=== PATIENT | female | born 1960 | race African-American/Black ===

== ENCOUNTER 2018-02-15 00:07 | Inpatient (IN) | payer SELFPAY ==
[2018-02-15] MEDS ORDERED: INSULIN REGULAR, HUMAN 100 UNIT/ML 3ML VIAL IV ONE ×3 (00:44→20:19)
--- NOTE | 2018-02-15 00:49 | ED Physician Documentation ---
Dyspnea - HPI Stated Complaint: dyspnea Chief Complaint: Dyspnea Additional Information: Patient, with past medical history of DM2, CHF, COPD, HTN, presented to ED on day of admission with a 2 day history of increasing shortness of breath and dry cough. She states her symptoms began yesterday evening and progressed bringing her in tonight. She also complains of lower extremity edema. While in the ED blood sugar is 369, she has been unable to afford her insulin. Onset: days ago (2) Duration: continues in ED Severity: moderate Exacerbated By: laying flat, coughing Associated Symptoms: other (lower extremity edema) - ROS CONST: no problems EYES/ENT: denies: problems with vision GI/: denies: abdominal pain NEURO/PSYCH: denies: headache MS/SKIN/LYMPH: denies: neck pain, swollen glands - PAST HX Lung Disease: COPD Cardiac Disease: CHF PE Risk Factors: leg swelling Other History: diabetes Type 2 Allergies/Adverse Reactions: Allergies Allergy/AdvReac Type Severity Reaction Status Date / Time captopril [From Capoten] Allergy Intermediate Rash Verified 02/15/18 01:55 egg Allergy Mild Verified 02/15/18 01:55 acetaminophen AdvReac Mild Itching Verified 02/15/18 01:55 [From Tylenol-Codeine #3] codeine phosphate AdvReac Mild Itching Verified 02/15/18 01:55 [From Tylenol-Codeine #3] hydrocodone AdvReac Mild Itch Verified 02/15/18 01:55 tramadol AdvReac Mild GI Upset Verified 02/15/18 01:55 Home Medications: Ambulatory Orders Medication Instructions Recorded Insulin Aspart [Novolog] 5 unit SQ BID 06/25/13 Insulin Detemir [Levemir] 30 unit SQ HS #1 vi 06/25/13 Aspirin 81 mg PO DAILY 02/15/18 Atorvastatin Calcium [Lipitor] 80 mg PO DAILY 02/15/18 Carvedilol [Coreg] 25 mg PO DAILY 02/15/18 Furosemide [Lasix] 20 mg PO DAILY 02/15/18 Lisinopril [Prinivil] 10 mg PO DAILY 02/15/18 amLODIPine BESYLATE [Norvasc] 5 mg PO 0900 02/15/18 - SOCIAL HX Smoking History: cigarettes, greater than 1 pack/day Alcohol Use: none Drug Use: none - FAMILY HX Family History: none - REVIEWED ASSESSMENTS Nursing Assessment Reviewed: Yes Vitals Reviewed: Yes Progress - Results/Orders Results/Orders: Portable chest Clinical history: Shortness of breath. Cough. Findings: Examination of the chest single portable AP view demonstrates a somewhat globular cardiomegaly possibly related to cardiomyopathy or pericardial effusion. Lungs are free of coalescent infiltrate. Bony thorax is intact. Impression: 1. Cardiomegaly and aortic atherosclerosis. 2. No active pulmonary disease. Electronically signed on Feb 15, 2018 1:57:05 AM CDT by: Abdirashid Ribera - Progress Progress: 0302 Patient feeling better after two breathing treatments. Patient's Sa02 drops into mid 80s off oxygen. Will admit. Patient is agreeable to 1 day admission. - EKG/XRAY/CT EKG: NSR ED Results Lab/Radiology - Orders Orders: ED Orders Category Date Time Status CHEST 1VIEW [RAD] Stat Exams 02/15/18 Ordered CBC REF Stat Lab 02/15/18 Ordered CMP Routine Lab 02/15/18 Ordered NT-proBNP Stat Lab 02/15/18 Ordered TROPONIN I (cTnI) Stat Lab 02/15/18 Ordered Insulin Regular, Human [Humulin R] Med 02/15/18 00:44 Once 15 unit IV NOW ONE Dyspnea Physical Exam - EXAM General Appearance: mild distress EENT: DONOVAN Neck: nml inspection Respiratory: wheezes (scattered wheezing bilaterally) CVS: reg. rate & rhythm Abdomen: non-tender Extremities: edema (+2 lower extremity edema bilaterally to knee) Neuro/Psych: oriented x3 Discharge Clincal Impression: Acute respiratory failure with hypoxia, COPD with acute exacerbation DM2 (diabetes mellitus, type 2) Qualifiers: Diabetes mellitus manager intermediate insulin use: with custodial use Diabetes mellitus complication status: with hyperglycemia Qualified Code(s): E11.65 - Type 2 diabetes mellitus with hyperglycemia; Z79.4 - terminal operations manager (current) use of insulin Referrals: Caryn Romero MD [Primary Care Provider] - 2 Days Disposition: ADMITTED INPATIENT Decision to Admit: [id number] Date of Decison to Admit: 02/15/18 Decision Time: 03:05
[2018-02-15] MEDS ORDERED: IPRATROPIUM/ALBUTEROL SULFATE 3 ML AMPUL.NEB NEB ONE ×2 (00:58→02:20)
[2018-02-15] MEDS ORDERED: INSULIN REGULAR, HUMAN 100 UNIT/ML 3ML VIAL SQ ONE ×2 (01:38→12:26)
[2018-02-15] MEDS ORDERED: METOLAZONE 2.5 MG TABLET PO ONE (01:58)
[2018-02-15 02:31] LABS: BASO % 0.5 % (0.0-1.5); EOS % 3.8 % (0.0-6.8); LYMPH ABS # 1.13 thou/uL (0.60-4.00); MCH. 25.6 pg (28.0-34.0); MCV 79.4 fL (80.0-100.0); MONOCYTE % 6.4 % (0.0-11.0); PLATELET COUNT 208 thou/uL (130-400)
[2018-02-15] MEDS ORDERED: methylPREDNISolone SOD SUCC 125 MG/2 ML VIAL IVP ONE (03:49)
[2018-02-15] MEDS ORDERED: INSULIN DETEMIR 100 UNIT/ML 3ML PEN.INJCTR SQ SCH (04:00)
[2018-02-15] MEDS ORDERED: INSULIN REGULAR, HUMAN 100 UNIT/ML 3ML VIAL SQ SCH ×2 (04:00→15:25)
[2018-02-15] MEDS ORDERED: INSULIN GLARGINE,HUM.REC.ANLOG 100 UNIT/ML PEN.INJCTR SQ ONE (04:40)
[2018-02-15] MEDS ORDERED: ASPIRIN EC 81 MG TABLET.DR ONE (05:01)
[2018-02-15] MEDS ORDERED: CARVEDILOL 12.5 MG TABLET PO ONE (05:04)
[2018-02-15] MEDS: HEPARIN SODIUM 5000 UNIT/1 ML SQ SCH ×3 (05:18→20:30)
[2018-02-15] MEDS: IPRATROPIUM/ALBUTEROL SULFATE 3 ML AMPUL.NEB NEB SCH ×3 (05:52→18:57)
--- NOTE | 2018-02-15 06:03 | Diagnostic Imaging Report ---
TOM MCCAULEY [facility] [id number] [facility] [address] [place] [address]. [id number] Report Submission Date: Feb 15, 2018 1:57:05 AM CDT Patient Study Name: AMANDA MONTIEL Date: Feb 15, 2018 1:40:16 AM CDT Modality Type: DX Gender: F Description: CHEST : 64 Institution: [facility] Physician: TOM MCCAULEY Portable chest Clinical history: Shortness of breath. Cough. Findings: Examination of the chest single portable AP view demonstrates a somewhat globular cardiomegaly possibly related to cardiomyopathy or pericardial effusion. Lungs are free of coalescent infiltrate. Bony thorax is intact. Impression: 1. Cardiomegaly and aortic atherosclerosis. 2. No active pulmonary disease. Electronically signed on Feb 15, 2018 1:57:05 AM CDT by: Abdirashid FISHER
[2018-02-15 07:47] VITALS: BMI 40.8
[2018-02-15] MEDS: ASPIRIN 81 MG CHEW TAB PO SCH (08:21)
[2018-02-15] MEDS: ATORVASTATIN CALCIUM 80 MG TABLET PO SCH (08:21)
[2018-02-15] MEDS: amLODIPine BESYLATE 5 MG TABLET PO SCH (08:21)
[2018-02-15] MEDS ORDERED: CARVEDILOL 25 MG TABLET PO SCH (09:00)
[2018-02-15] MEDS: CARVEDILOL 12.5 MG TABLET PO SCH (09:36)
[2018-02-15] MEDS: FUROSEMIDE 40 MG/4 ML VIAL IVP SCH (11:49)
[2018-02-15] MEDS ORDERED: 0.9 % SODIUM CHLORIDE 500 ML IV ONE (14:44)
--- NOTE | 2018-02-15 16:02 | Inpatient Progress Note ---
Subjective - Required Recertification Statement I anticipate X number of days because-include discharge plan: Patient admitted in observation status - mild CHF, hypoxia requiring oxygen - Review of Systems General: Denies: Chills, Night Sweats, Fatigue, Malaise, Appetite, Other HEENT: Denies: Head Aches, Visual Changes, Eye Pain, Ear Pain, Dysphasia, Sinus Congestion, Post Nasal Drip, Sore Throat, Other Pulmonary: Denies: Dyspnea, Cough, Pleuritic Chest Pain, Other Cardiovascular: Edema (ankles) Gastrointestinal: Denies: Nausea, Vomiting, Abdominal Pain Genitourinary: Denies: Dysuria, Frequency, Incontinence, Hematuria, Retention, Deferred, Other Musculoskeletal: Denies: Neck Pain, Shoulder Pain, Arm Pain, Back Pain, Hand Pain, Leg Pain, Foot Pain, Deferred, Other Neurological: Denies: Weakness, Numbness, Incoordination, Change in Speech, Confusion, Seizures, Deferred, Other Objective - Exam Vitals and I&O: Vital Signs Temp 98.1 F 02/15/18 14:00 Pulse 78 02/15/18 14:00 Resp 20 02/15/18 15:00 BP 122/56 02/15/18 14:00 Pulse Ox 93 02/15/18 09:24 Intake & Output 02/14/18 02/15/18 02/15/18 23:59 11:59 23:59 Intake Total 480 640 Balance 480 640 Weight 97.976 kg Intake: Oral 480 640 Other: Voiding Method Toilet Toilet # Voids 2 General: Alert, Oriented to Person, Oriented to Place, Oriented to Time, Cooperative HEENT: Atraumatic, PERRLA, EOMI, Mouth Mucous membr. moist/[place], Nose Mucous membr. moist/[place] Lungs: Clear to auscultation, Normal air movement, Speaks full Sentences Cardiovascular: Regular rate, Normal S1, Normal S2, No murmurs Abdomen: Normal bowel sounds, Soft, No tenderness, No hepatospenomegaly, No masses Extremities: No clubbing, No cyanosis, No edema, Normal pulses, No tenderness/swelling Skin: Normal, [place], Warm, Dry Neurological: Normal gait, Normal speech, Strength Equal Bilat, Normal tone, Sensation intact, Cranial nerves 3-12 NL, Reflexes 2+ Psych/Mental Status: Mental status NL, Mood NL, Appropriate Affect, Intact Judgment - Results Results: Laboratory Results WBC Comment 9.30 thou/uL (4.00-12.00) 02/15/18 01:19 RBC 4.29 mil/uL (3.90-5.20) 02/15/18 01:19 Hemoglobin (Send Out) 11.0 g/dL (11.5-16.0) L 02/15/18 01:19 Hct (Send Out) 34.1 % (34.5-46.5) L 02/15/18 01:19 MCV (Send Out) 79.4 fL (80.0-100.0) L 02/15/18 01:19 MCH 25.6 pg (28.0-34.0) L 02/15/18 01:19 MCHC (Send Out) 32.3 g/dL (30.0-36.0) 02/15/18 01:19 RDW Coeff of Yuan 14.6 % (11.3-14.7) 02/15/18 01:19 Plt Count 208 thou/uL (130-400) 02/15/18 01:19 Absolute Lymphs (auto) 1.13 thou/uL (0.60-4.00) 02/15/18 01:19 Absolute Monos (auto) 0.60 thou/uL (0.00-0.90) 02/15/18 01:19 Absolute Basos (auto) 0.05 thou/uL (0.00-0.50) 02/15/18 01:19 Neutrophils % 77.2 % (39.0-79.0) 02/15/18 01:19 Absolute Neutrophils 7.18 thou/uL (1.50-7.70) 02/15/18 01:19 Lymphocytes 12.1 % (16.0-50.0) L 02/15/18 01:19 Monocytes 6.4 % (0.0-11.0) 02/15/18 01:19 Absolute Eosinophils 0.35 thou/uL (0.00-0.60) 02/15/18 01:19 Basophilia % 0.5 % (0.0-1.5) 02/15/18 01:19 Eosinophil Count 3.8 % (0.0-6.8) 02/15/18 01:19 Sodium 128 mmol/L (136-145) L 02/15/18 13:00 Potassium 5.2 mmol/L (3.5-5.1) H 02/15/18 13:00 Chloride 105 mmol/L (98-107) 02/15/18 13:00 Carbon Dioxide 24 mmol/L (22-30) 02/15/18 13:00 BUN 43 mg/dL (7-17) H 02/15/18 13:00 Creatinine 2.00 mg/dL (0.52-1.04) H 02/15/18 13:00 Estimated Creat Clear 57 02/15/18 13:00 Est GFR ( Amer) 33 (60-) L 02/15/18 13:00 Est GFR (Non-Af Amer) 27 (60-) L 02/15/18 13:00 Glucose 419 mg/dL (74-106) H 02/15/18 13:00 Calcium 8.0 mg/dL (8.4-10.2) L 02/15/18 13:00 Total Bilirubin 0.2 mg/dL (0.2-1.3) 02/15/18 00:53 AST 14 U/L (15-46) L 02/15/18 00:53 ALT 20 U/L (13-69) 02/15/18 00:53 Alkaline Phosphatase 132 U/L (38-126) H 02/15/18 00:53 Troponin I < 0.03 ng/mL (0.03-0.06) L 02/15/18 00:54 NT-Pro-B Natriuret Pep 759.0 pg/mL (15.0-125.0) H 02/15/18 00:54 Total Protein 7.4 g/dL (6.3-8.2) 02/15/18 00:53 Albumin 3.9 g/dL (3.5-5.0) 02/15/18 00:53 Assessment/Plan - Assessment/Plan (1) CHF (congestive heart failure) Status: Acute Current Visit: Yes Qualifiers: Heart failure type: combined systolic and diastolic Heart failure chronicity: acute Qualified Code(s): I50.41 - Acute combined systolic (congestive) and diastolic (congestive) heart failure Narrative Support Text: BNP 759 - patient given zaroxlyn in ER, 1100 - lasix 40mg IV, cardiomegaly on chest xray, no pulmonary congestion noted on chest xray. Patient cannot recall ECHO and does not know her CHF. Plan: BMP - scheduled at 1300; will re-evaluate after results completed. Will likely need cardiology referral. (2) Hypoxemia requiring supplemental oxygen Status: Acute Current Visit: Yes Narrative Support Text: 1000 - O2 at 2L NC; BBS clear; orders to nursing to wean oxygen as tolerated for RA Sat > duonebs QID patient received 125mg IV solumedrol in ER> Plan: Wean supplemental oxygen as tolerated for RA Sat >90% (3) Hyperglycemia Status: Acute Current Visit: Yes Narrative Support Text: 1345 BMP with Glucose 419; K 5.2, Na 128 Close review of chart and orders. Patient was placed on Regular diet At home novolog is 18u before meals; lantus 40u qhs Solumedrol 125mg IV in ER Plan: 1. Regular diet discontinued - no concentrated sweet diet ordered. 2. At home novolog is 18u before meals; lantus 40u qhs - 1 time order of 10U Hum R IV given; NS fluid bolus 500cc given 3. Solumedrol 125mg IV in ER - BBS clear, O2 off with RA Sat >90%, will not give any additional IV steroids. 4. R/O DKA - arterial blood gas and UA ordered; must r/o DKA with elevated glucose and K. No acidosis on blood gas; 1600 Blood sugar 469 Patient shared that she has been out of Lantus for 1 week, status she does not have insurance for prescriptions. financial services consultant consult for discharge planning and medication coverage. Case reviewed with Dr Wells. Dr Wells to admit patient acute status (4) Renal insufficiency Status: Acute Current Visit: Yes Narrative Support Text: Cr 1.8 in ER; after diuresing CR up to 2.0 - NS given for hyperglycemia and renal insufficiency.
[2018-02-15 16:05] LABS: APPEARANCE,URINE CLEAR (CLEAR); COLOR,URINE YELLOW (YELLOW)
[2018-02-15 16:06] LABS: OCCULT BLOOD,URINE TRACE-LYSED (NEGATIVE); PH URINE 5.5 (5.0 - 8.0); UROBILINOGEN URINE 0.2 Eu (0.2-1.0)
--- NOTE | 2018-02-15 16:13 | History and Physical Report ---
History of Present Illnes - History of Present Illness Reason for Visit: dyspnea History of Present Illness: 57yo female with 2 day history of SOB. Has been coughing, nonproductive in nature. Has some mild wheezing. No history of asthma noted. Patient subsequently came to the emergency room for evaluation. Patient was felt to have some mild congestive heart failure and possible early COPD exacerbation. Patient was subsequently admitted to observation care for further treatment. However patient blood sugars became uncontrolled with increasing BUN and creatinine. Patient was subsequently admitted to acute care for further evaluation and treatment. - Past Medical History Cardiac: CAD, HTN Pulmonary: denies: Asthma, COPD Renal/: Chronic renal insuff Endocrine: Diabetes - Past Surgical History Past Surgical History: , Other (ORIF left ankle fracure., umbilical hernia surgery. ) - Past Family History Mother Family History: Cancer (? breast), (52) Father Family History: (72yo, unknown) Brother Family History: DM, Other (patient has 6 brothers) Sister Family History: Cancer (breast), DM, Hypertension, Other (3 sisters) - Past Social History Smoke: # pack years (20), <1 pack per day (10 cirgarettes a day) Occupation: Work at [employer] Alcohol: None Drugs: None Lives: Alone Domestic Violence: Negative - Health Maintenance Health Maintenance: Pneumococcal Vaccine (prevnar 13), Mammogram (>5yrs). denies: Influenza Vaccine, Colonoscopy Influenza Vaccine: No Pneumonia Vaccine: Yes Resuscitation Status: Resusciation Status Resuscitation Status Full Code Review of Systems - Review of Systems Constitutional: negative: Fever, Chills, Weakness Eyes: negative: pain, vision change ENT: negative: Ear Pain, Ear Discharge, Nose Pain, Nose Discharge, Nose Congestion, Mouth Pain, Mouth Swelling, Throat Pain, Throat Swelling Respiratory: Cough, Shortness of Breath, SOB with Excertion. negative: Pleuritic Pain Cardiovascular: negative: Chest Pain, Palpitations, Orthopnea, Paroxysmal Noc. Dyspnea, Edema, Light Headedness Gastrointestinal: negative: Nausea, Vomiting, Abdominal Pain, Diarrhea, Constipation, Melena, Hematochezia Genitourinary: negative: Dysuria, Frequency, Incontinence, Hematuria Musculoskeletal: Back Pain (mild) Skin: negative: Rash Neurological: Weakness. negative: Numbness, Incoordination, Change in Speech - Medications/Allergies Allergies/Adverse Reactions: Allergies Allergy/AdvReac Type Severity Reaction Status Date / Time captopril [From Capoten] Allergy Intermediate Rash Verified 02/15/18 01:55 egg Allergy Mild Verified 02/15/18 01:55 acetaminophen AdvReac Mild Itching Verified 02/15/18 01:55 [From Tylenol-Codeine #3] codeine phosphate AdvReac Mild Itching Verified 02/15/18 01:55 [From Tylenol-Codeine #3] hydrocodone AdvReac Mild Itch Verified 02/15/18 01:55 tramadol AdvReac Mild GI Upset Verified 02/15/18 01:55 Home Medications: Home Medications Aspirin 81 mg PO DAILY 02/15/18 Atorvastatin Calcium [Lipitor] 80 mg PO DAILY 02/15/18 Carvedilol [Coreg] 25 mg PO DAILY 02/15/18 Furosemide [Lasix] 20 mg PO DAILY 02/15/18 Lisinopril [Prinivil] 10 mg PO DAILY 02/15/18 amLODIPine BESYLATE [Norvasc] 5 mg PO 0900 02/15/18 Insulin Glargine,Hum.rec.anlog [Lantus] 40 unit SQ BID 02/17/18 Current Inpatient Medications: Current Inpatient Medications Albuterol/Ipratropium (Duoneb) 3 ml NEB Q6 [facility] Last Admin: 02/15/18 12:00 Dose: 3 ml Amlodipine Besylate (Norvasc) 5 mg PO 0900 [facility] Last Admin: 02/15/18 08:21 Dose: 5 mg Aspirin (Aspirin) 81 mg PO DAILY [facility] Last Admin: 02/15/18 08:21 Dose: 81 mg Atorvastatin Calcium (Lipitor) 80 mg PO DAILY [facility] Last Admin: 02/15/18 08:21 Dose: 80 mg Carvedilol (Coreg) 25 mg PO DAILY [facility] Last Admin: 02/15/18 09:36 Dose: Not Given Furosemide (Lasix) 40 mg IVP QD [facility] Last Admin: 02/15/18 11:49 Dose: 40 mg Heparin Sodium (Porcine) (Heparin) 5,000 unit SQ Q8 [facility] Last Admin: 02/15/18 12:41 Dose: 5,000 unit Insulin Detemir (Levemir Flex-Pen) 30 unit SQ HS [facility] Last Admin: 02/15/18 05:18 Dose: 30 units Insulin Human Regular (Humulin R) 0 unit SQ NOW ZEESHAN; Protocol Miscellaneous (Chem Sticks) 1 each CHEMQID [facility] Last Admin: 02/15/18 11:22 Dose: 1 each Exam - Exam Vital Signs: Vital Signs (72 hours) 02/15/18 02/15/18 02/15/18 00:10 03:41 06:00 Temperature 97.7 F 98.4 F 97.6 F Pulse Rate [ 92 H 79 85 Pulse ox] Respiratory 20 24 20 Rate Blood Pressure 167/73 140/68 126/49 [Left Arm] O2 Sat by Pulse 91 L 98 98 Oximetry 02/15/18 02/15/18 02/15/18 09:24 14:00 15:00 Temperature 98.4 F 98.1 F Pulse Rate [ 80 78 Pulse ox] Respiratory 22 20 20 Rate Blood Pressure 119/44 122/56 [Left Arm] O2 Sat by Pulse 93 Oximetry General: Alert, Oriented to Person, Oriented to Place, Oriented to Time, Cooperative, Mild distress HEENT: Atraumatic, PERRLA, EOMI, Mouth Mucous membr. moist/[place], Nose Mucous membr. moist/[place], Hearing Grossly Normal Neck: Normal Range of Motion Carotids: WNL Thyroid: WNL Lungs: Normal air movement, Speaks full Sentences, Wheezes (mild expiratory). No: Rales, Rhonchi Cardiovascular: Regular rate, Normal S1, Normal S2, No murmurs Abdomen: Normal bowel sounds, Soft, No tenderness, No hepatospenomegaly, No masses Integumentary: Normal, [place], Warm, Dry Extremities: No clubbing, No cyanosis, Normal pulses, No tenderness/swelling, Other (2 plus edema) Neurological: Normal gait, Normal speech, Strength Equal Bilat, Normal tone, Sensation intact, Cranial nerves 3-12 NL, Reflexes 2+ Psych/Mental Status: Mental status NL, Mood NL, Appropriate Affect, Intact Judgment - Laboratory Results Laboratory Results: Laboratory Results 02/15/18 02/15/18 02/15/18 00:53 00:54 01:19 WBC Comment 9.30 RBC 4.29 Hemoglobin (Send Out) 11.0 L Hct (Send Out) 34.1 L MCV (Send Out) 79.4 L MCH 25.6 L MCHC (Send Out) 32.3 RDW Coeff of Yuan 14.6 Plt Count 208 Absolute Lymphs (auto) 1.13 Absolute Monos (auto) 0.60 Absolute Basos (auto) 0.05 Neutrophils % 77.2 Absolute Neutrophils 7.18 Lymphocytes 12.1 L Monocytes 6.4 Absolute Eosinophils 0.35 Basophilia % 0.5 Eosinophil Count 3.8 Sodium 130 L Potassium 4.8 Chloride 106 Carbon Dioxide 24 BUN 40 H Creatinine 1.80 H Estimated Creat Clear 65 Est GFR ( Amer) 38 L Est GFR (Non-Af Amer) 31 L Glucose 307 H Calcium 8.3 L Total Bilirubin 0.2 AST 14 L ALT 20 Alkaline Phosphatase 132 H Troponin I < 0.03 L NT-Pro-B Natriuret Pep 759.0 H Total Protein 7.4 Albumin 3.9 Urine Color Urine Appearance Urine pH Ur Specific [place] Urine Protein Urine Ketones Urine Occult Blood Urine Nitrite Urine Bilirubin Urine Urobilinogen Ur Leukocyte Esterase Urine Glucose 02/15/18 02/15/18 13:00 14:44 WBC Comment RBC Hemoglobin (Send Out) Hct (Send Out) MCV (Send Out) MCH MCHC (Send Out) RDW Coeff of Yuan Plt Count Absolute Lymphs (auto) Absolute Monos (auto) Absolute Basos (auto) Neutrophils % Absolute Neutrophils Lymphocytes Monocytes Absolute Eosinophils Basophilia % Eosinophil Count Sodium 128 L Potassium 5.2 H Chloride 105 Carbon Dioxide 24 BUN 43 H Creatinine 2.00 H Estimated Creat Clear 57 Est GFR ( Amer) 33 L Est GFR (Non-Af Amer) 27 L Glucose 419 H Calcium 8.0 L Total Bilirubin AST ALT Alkaline Phosphatase Troponin I NT-Pro-B Natriuret Pep Total Protein Albumin Urine Color Yellow Urine Appearance Clear Urine pH 5.5 Ur Specific [place] 1.015 Urine Protein 2+ H Urine Ketones Negative Urine Occult Blood Trace-lysed H Urine Nitrite Negative Urine Bilirubin Negative Urine Urobilinogen 0.2 Ur Leukocyte Esterase Negative Urine Glucose 1+ H Assessment/Plan - Assessment/Plan (1) CHF (congestive heart failure) Status: Acute Qualifiers: Heart failure type: combined systolic and diastolic Heart failure chronicity: acute Qualified Code(s): I50.41 - Acute combined systolic (congestive) and diastolic (congestive) heart failure (2) COPD with acute exacerbation Status: Chronic (3) DM2 (diabetes mellitus, type 2) Status: Chronic Qualifiers: Diabetes mellitus terminal carman insulin use: with terminal carman use Diabetes mellitus complication status: with hyperglycemia Qualified Code(s): E11.65 - Type 2 diabetes mellitus with hyperglycemia; Z79.4 - MCFP (current) use of insulin (4) Renal insufficiency Status: Chronic Assessment: Patient is not sure what her baseline BUN and creatinine are. Will monitor. VTE Assessment - RISK FACTOR SCORE VTE RISK FACTOR SCORES: AGE 40-60 YEARS, ANTICIPATED BED CONFINEMENT OR IMMOBILIZATION > 24 HOURS - RISK VTE MODERATE RISK: SCORE OF 2 (RISK PROXIMAL DVT 2-4%) PROPHYAXIS NEEDED
[2018-02-15] MEDS: INSULIN REGULAR, HUMAN 100 UNIT/ML 3ML VIAL SQ SCH ×2 (18:24→20:36)
[2018-02-15] MEDS ORDERED: PATIENT OWN MED 1 EACH EACH SQ SCH (21:00)
[2018-02-15] MEDS ORDERED: INSULIN GLARGINE,HUM.REC.ANLOG 100 UNIT/ML PEN.INJCTR SQ SCH (21:00)
[2018-02-16] MEDS: IPRATROPIUM/ALBUTEROL SULFATE 3 ML AMPUL.NEB NEB SCH ×4 (00:05→17:46)
[2018-02-16] MEDS: INSULIN REGULAR, HUMAN 100 UNIT/ML 3ML VIAL SQ SCH ×5 (01:16→20:52)
[2018-02-16 07:25] LABS: eGFR (Non-African) 27
[2018-02-16 08:20] LABS: BASO % 0.2 % (0.0-1.5); EOS % 0.1 % (0.0-6.8); LYMPH ABS # 1.13 thou/uL (0.60-4.00); MCH. 26.4 pg (28.0-34.0); MCV 81.2 fL (80.0-100.0); MONOCYTE % 9.3 % (0.0-11.0); MONOCYTE ABS # 0.68 thou/uL (0.00-0.90); PLATELET COUNT 201 thou/uL (130-400)
[2018-02-16] MEDS: amLODIPine BESYLATE 5 MG TABLET PO SCH (09:02)
[2018-02-16] MEDS: CARVEDILOL 12.5 MG TABLET PO SCH (09:02)
[2018-02-16] MEDS: ATORVASTATIN CALCIUM 80 MG TABLET PO SCH (09:02)
[2018-02-16] MEDS: ASPIRIN 81 MG CHEW TAB PO SCH (09:02)
[2018-02-16] MEDS: FUROSEMIDE 40 MG/4 ML VIAL IVP SCH (11:20)
[2018-02-16] MEDS ORDERED: PATIENT OWN MED 1 EACH EACH SQ ONE (13:12)
--- NOTE | 2018-02-16 19:50 | Diagnostic Imaging Report ---
[place]MED [facility]G [facility] [address] [facility] [address] [address] Report Submission Date: Feb 16, 2018 7:17:50 AM CDT Patient Study Name: AMANDA MONTIEL Date: Feb 16, 2018 6:41:33 AM CDT Modality Type: DX Gender: F Description: CHEST : 64 Institution: [facility] Physician: JERRY MATTHEWS/MED SURG Chest, 2 view History: F/U DYSPNEA, NO CURRENT SYMPTOMS Findings: Comparison is made to exam dated 02/15/2018. The heart size is enlarged. The lungs are clear. There is no pleural effusion or pneumothorax identified. The osseous structures are normal. Impression: 1. No acute pulmonary disease. 2. Cardiomegaly. Electronically signed on Feb 16, 2018 7:17:50 AM CDT by: True FISHER
[2018-02-16] MEDS: INSULIN GLARGINE,HUM.REC.ANLOG 100 UNIT/ML PEN.INJCTR SQ SCH (20:51)
[2018-02-17] MEDS: IPRATROPIUM/ALBUTEROL SULFATE 3 ML AMPUL.NEB NEB SCH ×2 (00:28→06:04)
[2018-02-17] MEDS: ASPIRIN 81 MG CHEW TAB PO SCH (08:24)
[2018-02-17] MEDS: CARVEDILOL 12.5 MG TABLET PO SCH (08:24)
[2018-02-17] MEDS: ATORVASTATIN CALCIUM 80 MG TABLET PO SCH (08:25)
[2018-02-17] MEDS: INSULIN REGULAR, HUMAN 100 UNIT/ML 3ML VIAL SQ SCH (08:25)
[2018-02-17] MEDS: amLODIPine BESYLATE 5 MG TABLET PO SCH (08:25)
[2018-02-17] MEDS: INSULIN GLARGINE,HUM.REC.ANLOG 100 UNIT/ML PEN.INJCTR SQ SCH (08:30)
[2018-02-17 10:07] VITALS: BP 119/53
[2018-02-20 08:16] LABS: ABG PH 7.38 (7.35-7.45)
[2018-02-20 08:17] LABS: ABG BASE EXCESS 1.2 (-2 - +2)
--- NOTE | 2018-02-26 20:47 | Discharge Summary ---
Discharge Summary - Discharge Sumary History of Present Illness: 57yo female with 2 day history of SOB. Has been coughing, nonproductive in nature. Has some mild wheezing. No history of asthma noted. Patient subsequently came to the emergency room for evaluation. Patient was felt to have some mild congestive heart failure and possible early COPD exacerbation. Patient was subsequently admitted to observation care for further treatment. However patient blood sugars became uncontrolled with increasing BUN and creatinine. Patient was subsequently admitted to acute care for further evaluation and treatment. Condition at Discharge: Stable Home Medications: Ambulatory Orders Medication Instructions Recorded Insulin Aspart [Novolog] 18 unit SQ TID 06/25/13 Aspirin 81 mg PO DAILY 02/15/18 Atorvastatin Calcium [Lipitor] 80 mg PO DAILY 02/15/18 Carvedilol [Coreg] 25 mg PO DAILY 02/15/18 Furosemide [Lasix] 20 mg PO DAILY 02/15/18 Lisinopril [Prinivil] 10 mg PO DAILY 02/15/18 amLODIPine BESYLATE [Norvasc] 5 mg PO 0902/15/18 Insulin Glargine,Hum.rec.anlog 40 unit SQ BID 02/17/18 [Lantus] Consultations this Visit: None Procedures this Visit: None Allergies/Adverse Reactions: Allergies Allergy/AdvReac Type Severity Reaction Status Date / Time captopril [From Capoten] Allergy Intermediate Rash Verified 02/15/18 01:55 egg Allergy Mild Verified 02/15/18 01:55 acetaminophen AdvReac Mild Itching Verified 02/15/18 01:55 [From Tylenol-Codeine #3] codeine phosphate AdvReac Mild Itching Verified 02/15/18 01:55 [From Tylenol-Codeine #3] hydrocodone AdvReac Mild Itch Verified 02/15/18 01:55 tramadol AdvReac Mild GI Upset Verified 02/15/18 01:55 Discharge Summary: Patient was started on IV Lasix therapy. Patient did have good diuresis. Within 24 hours patient stated her breathing status but much improved. Patient which is using oxygen on a PRN basis at that point. The peel edema in the patient feet did improve. At the time of dismissal patient felt that she would back to her baseline with her breathing. It was felt that the patient could be managed on an outpatient basis and was subsequently discharged in stable condition. Other medical problems included hyponatremia with a sodium of 129. Patient did have some mild anemia with the hemoglobin of 10.4. Patient creatinine BUN remain stable at two and 46 respectively. Troponin was less than 0.03. BNP with 359.Patient is repeat chest x-ray showed some cardiomegaly but no pulmonary edema.Patient diabetes with not well controlled initially. At the time of dismissal however patient blood sugars are running in the 100 range. Patient did not have any hypoglycemic episodes. - Final Diagnosis (1) CHF (congestive heart failure) Problems: Improved. (2) COPD with acute exacerbation Problems: Stable. (3) DM2 (diabetes mellitus, type 2) Problems: improved (4) Renal insufficiency Problems: Stable.
--- NOTE | 2018-02-26 20:48 | Inpatient Progress Note ---
Subjective - Required Recertification Statement I anticipate X number of days because-include discharge plan: 1 day - Review of Systems Events since last encounter: Patient stated her breathing seemed to be much improved at this time. Patient is not have any orthopnea symptoms. Patient peel edema seems to be improved. Patient still does have some dyspnea with exertion. Patient denies any chest pain or chest pressure. Blood sugars have been running in the 2 to 300 range. Patient is not had any hypoglycemic episodes. General: Denies: Chills, Night Sweats Pulmonary: Dyspnea. Denies: Cough, Pleuritic Chest Pain Cardiovascular: Denies: Chest Pain, Palpitations, Orthopnea Gastrointestinal: Denies: Nausea, Vomiting Objective - Exam Vitals and I&O: Vital Signs Temp 97.9 F 02/17/18 09:59 Pulse 79 02/17/18 09:59 Resp 18 02/17/18 09:59 BP 119/53 02/17/18 09:59 Pulse Ox 94 02/17/18 09:59 General: Alert, Oriented to Person, Oriented to Place, Oriented to Time, Cooperative Neck: Supple, No JVD, No thyromegaly Lungs: Normal air movement, Speaks full Sentences, Rales (bases bilaterally) Cardiovascular: Regular rate, Normal S1, Normal S2, No murmurs Abdomen: Normal bowel sounds, Soft, No tenderness Extremities: Other (1-2 plus edema) Skin: Normal, [place], Warm, Dry Neurological: Normal gait, Normal speech, Strength Equal Bilat, Normal tone Psych/Mental Status: Mental status NL, Mood NL, Appropriate Affect - Results Results: Laboratory Results WBC Comment 7.28 thou/uL (4.00-12.00) 02/16/18 06:00 RBC 3.94 mil/uL (3.90-5.20) 02/16/18 06:00 Hemoglobin (Send Out) 10.4 g/dL (11.5-16.0) L 02/16/18 06:00 Hct (Send Out) 32.0 % (34.5-46.5) L 02/16/18 06:00 MCV (Send Out) 81.2 fL (80.0-100.0) 02/16/18 06:00 MCH 26.4 pg (28.0-34.0) L 02/16/18 06:00 MCHC (Send Out) 32.5 g/dL (30.0-36.0) 02/16/18 06:00 RDW Coeff of Yuan 14.5 % (11.3-14.7) 02/16/18 06:00 Plt Count 201 thou/uL (130-400) 02/16/18 06:00 Absolute Lymphs (auto) 1.13 thou/uL (0.60-4.00) 02/16/18 06:00 Absolute Monos (auto) 0.68 thou/uL (0.00-0.90) 02/16/18 06:00 Absolute Basos (auto) 0.01 thou/uL (0.00-0.50) 02/16/18 06:00 Neutrophils % 74.9 % (39.0-79.0) 02/16/18 06:00 Absolute Neutrophils 5.45 thou/uL (1.50-7.70) 02/16/18 06:00 Lymphocytes 15.5 % (16.0-50.0) L 02/16/18 06:00 Monocytes 9.3 % (0.0-11.0) 02/16/18 06:00 Absolute Eosinophils 0.01 thou/uL (0.00-0.60) 02/16/18 06:00 Basophilia % 0.2 % (0.0-1.5) 02/16/18 06:00 Eosinophil Count 0.1 % (0.0-6.8) 02/16/18 06:00 pH 7.38 (7.35-7.45) 02/15/18 15:35 pCO2 44 mmhg (35-48) 02/15/18 15:35 pO2 51 mmhg (83-108) L 02/15/18 15:35 HCO3 25.5 Meq/L (21-28) 02/15/18 15:35 ABG O2 Sat Calc/Tj 90 % (93-100) L 02/15/18 15:35 ABG Base Excess 1.2 (-2 - +2) 02/15/18 15:35 Sodium 129 mmol/L (136-145) L 02/16/18 06:00 Potassium 4.2 mmol/L (3.5-5.1) 02/16/18 06:00 Chloride 108 mmol/L (98-107) H 02/16/18 06:00 Carbon Dioxide 24 mmol/L (22-30) 02/16/18 06:00 BUN 46 mg/dL (7-17) H 02/16/18 06:00 Creatinine 2.00 mg/dL (0.52-1.04) H 02/16/18 06:00 Estimated Creat Clear 59 02/16/18 06:00 Est GFR ( Amer) 33 (60-) L 02/16/18 06:00 Est GFR (Non-Af Amer) 27 (60-) L 02/16/18 06:00 Glucose 312 mg/dL (74-106) H 02/16/18 06:00 Calcium 8.1 mg/dL (8.4-10.2) L 02/16/18 06:00 Total Bilirubin < 0.1 mg/dL (0.2-1.3) L 02/16/18 06:00 AST 12 U/L (15-46) L 02/16/18 06:00 ALT 18 U/L (13-69) 02/16/18 06:00 Alkaline Phosphatase 114 U/L (38-126) 02/16/18 06:00 Troponin I < 0.03 ng/mL (0.03-0.06) L 02/15/18 00:54 NT-Pro-B Natriuret Pep 759.0 pg/mL (15.0-125.0) H 02/15/18 00:54 Total Protein 6.7 g/dL (6.3-8.2) 02/16/18 06:00 Albumin 3.4 g/dL (3.5-5.0) L 02/16/18 06:00 Urine Color Yellow (YELLOW) 02/15/18 14:44 Urine Appearance Clear (CLEAR) 02/15/18 14:44 Urine pH 5.5 (5.0 - 8.0) 02/15/18 14:44 Ur Specific [place] 1.015 (1.010-1.030) 02/15/18 14:44 Urine Protein 2+ mg/dL (NEGATIVE) H 02/15/18 14:44 Urine Ketones Negative mg/dL (NEGATIVE) 02/15/18 14:44 Urine Occult Blood Trace-lysed (NEGATIVE) H 02/15/18 14:44 Urine Nitrite Negative (NEGATIVE) 02/15/18 14:44 Urine Bilirubin Negative (NEGATIVE) 02/15/18 14:44 Urine Urobilinogen 0.2 Eu (0.2-1.0) 02/15/18 14:44 Ur Leukocyte Esterase Negative (NEGATIVE) 02/15/18 14:44 Urine Glucose 1+ mg/dL (NEGATIVE) H 02/15/18 14:44 Assessment/Plan - Assessment/Plan (1) CHF (congestive heart failure) Status: Acute Qualifiers: Heart failure type: combined systolic and diastolic Heart failure chronicity: acute Qualified Code(s): I50.41 - Acute combined systolic (congestive) and diastolic (congestive) heart failure Assessment: Improved will continue with present treatment plan. 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 (4) Renal insufficiency Status: Chronic Assessment: stable
== END 2018-02-17 10:52 | disposition home or self-care (01) | DRG 189 ==
LOC: ED 00:07 → SOUTH 03:32 → OBSVTOIN 03:32
PROVIDERS: ADMIT Nurse Practitioner Family; ATTEND Family Medicine
DX: J96.91 Respiratory failure, unspecified with hypoxia (principal); J44.1 Chronic obstructive pulmonary disease with (acute) exacerbation; E11.65 Type 2 diabetes mellitus with hyperglycemia; Z79.4 Long term (current) use of insulin; I50.9 Heart failure, unspecified; I10 Essential (primary) hypertension; N28.9 Disorder of kidney and ureter, unspecified
CPT/HCPCS: 36415; 36600; 71045; 71046; 80048; 80053; 81002; 82803; 83880; 84484; 85025; 93005; J1644; J1815; J1940; J2930; J7060; 94640; 96372; 99223; 99232; 99238; S1016